=== PATIENT | male | born 1985 | race Caucasian/White ===

== ENCOUNTER 2017-04-13 16:12 | Emergency (ER) | payer OTHER ==
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
--- NOTE | 2017-04-14 11:06 | Diagnostic Imaging Report ---
Exam: CT scan of the brain without contrast History: Head injury Total DLP equals 627 CTDI equals 3. 1.4 Axial sections were obtained from the base of the skull to the vertex. There is a normal ventricular system size. No focal parenchymal lesions are seen. No evidence of any mass effect or shift of midline structures. No extra-axial masses or abnormal fluid collections. Impression: Negative examination.
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
== END 2017-04-13 18:25 | disposition home or self-care (01) ==
LOC: ER 16:12
DX: S00.81XA Abrasion of other part of head, initial encounter (principal); F17.200 Nicotine dependence, unspecified, uncomplicated; Y08.89XA Assault by other specified means, initial encounter; Y93.89 Activity, other specified; Y92.89 Other specified places as the place of occurrence of the external cause; Y99.8 Other external cause status
CPT/HCPCS: 70450-TC; 70486-TC; Z7502

== ENCOUNTER 2017-04-15 14:13 | Emergency (ER) | payer OTHER ==
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
== END 2017-04-15 14:30 | disposition still patient (30) ==
LOC: ER 14:13
DX: Z02.89 Encounter for other administrative examinations (principal); S00.81XD Abrasion of other part of head, subsequent encounter; X58.XXXD Exposure to other specified factors, subsequent encounter
CPT/HCPCS: Z7502

== ENCOUNTER 2017-06-19 11:21 | Emergency (ER) | payer OTHER ==
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
[2017-06-19] MEDS ORDERED: Triple Antibiotic 0.94 gm Pkt TP STA (12:01)
[2017-06-19] MEDS ORDERED: Bacitracin pkt 1 gm Pkt TP ONE (12:13)
[2017-06-19] MEDS ORDERED: Triple Antibiotic 0.94 gm Pkt TP ONE (12:25)
[2017-06-19 12:26] LABS: % BASOPHILS 0.2 % (0.0-2.0); % EOSINOPHILS 1.3 % (0.0-5.0); % LYMPHOCYTES 26.6 % (20.0-50.0); % MONOCYTES 7.7 % (2.0-10.0); % NEUTROPHILS 64.2 % (40.0-80.0); HEMATOCRIT 40.2 % (41.0-60); HEMOGLOBIN 13.6 gm/dL (12-16); MEAN CELL VOLUME 87.4 fl (80-99); MEAN CORPUSCULAR HEMOGLOBIN 29.5 pg (26.0-30.0); MEAN CORPUSCULAR HGB CONC 33.8 pg (28.0-36.0); MEAN PLATELET VOLUME 7.2 fl; NEUTROPHILE ABSOLUTE 4.5 Th/cmm (1.8-8.0); PLATELET COUNT 223 Th/cmm (150-400); RED CELL DISTRIBUTION WIDTH 13.3 % (11.5-20.0); WHITE BLOOD COUNT 6.9 Th/cmm (4.8-10.8)
[2017-06-19 12:37] LABS: INR 1.14 (0.5-1.4)
[2017-06-19 12:41] LABS: ALB/GLOB RATIO 1.6 (1.0-1.8); ALKALINE PHOSPHATASE 20 U/L (34-104); ANION GAP 5.4 (7.0-16.0); BILIRUBIN,TOTAL 0.6 mg/dL (0.3-1.0); CALCIUM SERUM 9.1 mg/dL (8.6-10.3); CARBON DIOXIDE 30.7 mEq/L (21.0-31.0); CHLORIDE 106 mEq/L (98-107); CREATININE - SERUM 0.9 mg/dL (0.7-1.3); GLUCOSE 97 mg/dL (70-105); POTASSIUM SERUM 4.1 mEq/L (3.5-5.1); SGOT 101 U/L (13-39); SGPT/ALT 75 U/L (7-52); SODIUM SERUM 138 mEq/L (136-145)
[2017-06-19 13:38] LABS: BUN/CREATININE RATIO 13.3
[2017-06-19 13:44] LABS: BUN - UREA NITROGEN 12 mg/dL (7-25)
--- NOTE | 2017-06-20 08:03 | Diagnostic Imaging Report ---
Head CT without intravenous contrast Indication: Trauma nasal region Comparison: Head CT on 04/13/2017 Technique: Axial images were obtained from the vertex to the skull base without IV contrast. Coronal reconstructions were made. Total DLP: 575, [id number] FINDINGS: Images of the brain obtained without contrast demonstrate no acute hemorrhage. No mass lesions identified. The ventricles and basal cisterns are patent. The campo-white matter differentiation is preserved. There is no mass effect or midline shift. No skull fractures identified. No soft tissue swelling. The paranasal sinuses are clear. IMPRESSION: No acute intracranial abnormality.
--- NOTE | 2017-06-20 08:13 | Diagnostic Imaging Report ---
CT facial bones without IV contrast HISTORY: Trauma left facial region COMPARISON: CT facial bones on 04/13/2017 Technique: Axial images of the paranasal sinuses were obtained without IV contrast. Reconstructions were made. total DLP: 231, CTDI16 Findings: There are multiple fractures of the left maxillary sinus including fractures involving the anterior wall and impacted depressed fracture involving the posterior lateral wall with 4 mm internal displacement of fracture fragments along the posterior lateral wall and surrounding pockets of gas. The fracture extends to the lateral aspect of the left maxillary sinus along the anterior aspect along of the left zygomatic arch. The left orbital floor is preserved. The left pterygoid plates are preserved. There are pockets of gas seen throughout the left union steward space region and within the left maxillary sinus. Partial opacification left maxillary sinus with high density and small air-fluid level. Mucous retention cyst versus polyps are seen within the right maxillary sinus. The globes and intraconal compartments are preserved. Age-indeterminate nondisplaced nasal fractures are noted. There is mild rightward deviation of the nasal septum. There is diffuse soft tissue swelling of the left facial region. IMPRESSION: Left-sided facial fractures including displaced fracture which extends from the anterior aspect of the left zygomatic arch to the left maxillary sinus with associated fractures of the anterior and posterior-lateral mosquera of the left maxillary sinus extending to the floor of the left maxillary sinus. Surrounding soft tissue swelling is seen. Pockets of gas in the regional superficial and deep fat planes are also noted. The left orbital floor is intact. Small air-fluid levels within the left maxillary sinus with small amount of hemorrhage also noted. Age-indeterminate possibly chronic nondisplaced nasal fractures. Sinus disease including mucous retention cysts versus polyps of the right maxillary sinus.
== END 2017-06-19 19:15 | disposition home or self-care (01) ==
LOC: ER 11:21
DX: S05.12XA Contusion of eyeball and orbital tissues, left eye, initial encounter (principal); F15.10 Other stimulant abuse, uncomplicated; Z86.19 Personal history of other infectious and parasitic diseases; X58.XXXA Exposure to other specified factors, initial encounter; Y93.89 Activity, other specified; Y92.89 Other specified places as the place of occurrence of the external cause; Y99.8 Other external cause status
CPT/HCPCS: 99285; 70450; 70486; 36415; 36416; 82948; 85025; 85610; 80320; 80053; 90715; Z7610

== ENCOUNTER 2017-07-09 10:33 | Emergency (ER) | payer OTHER ==
[2017-07-09] MEDS ORDERED: Naloxone 0.4 mg/mL 1mL Vial IM STA (10:39)
[2017-07-09] MEDS ORDERED: Naloxone 0.4 mg/mL 1mL Vial ONE (10:47)
--- NOTE | 2017-07-09 10:47 | ED Physician Chart ---
ED Chief Complaint/HPI - Patient Information Date Seen:: 07/09/17 Time Seen:: 10:40 Chief Complaint:: altered while sleeping on street History of Present Illness:: location: general quality: altered while sleeping on the street severity: mild duration: few hours context: pt with history of methadone use says he took one pill this am and was found sleeping on the street by bystanders who called 911. medics arriving on scene performed initial survey and asked pt routine screening questions. pt lay in sleeping position on street and did not answer questions. pt is easily arousable, opens eyes spontaneously but because he did not answer the questions according to medic protocol pt to be brought to ER, stable vital signs. no pain complaint on arrival. mod factors: none assoc s/s: none hx from medic and patient Allergies:: Allergies Allergy/AdvReac Type Severity Reaction Status Date / Time No Known Allergies Allergy Verified 06/28/16 03:47 Historian:: Patient, EMS Review:: Nurse's Note Reviewed, EMS run form Reviewed ED Review of Systems - Review of Systems General/Constitutional: No fever, No chills, No weight loss, No weakness, No diaphoresis, No edema, No loss of appetite Skin: No skin lesions, No rash, No bruising Head: No headache, No light-headedness Eyes: No loss of vision, No pain, No diplopia ENT: No earache, No nasal drainage, No sore throat, No tinnitus Neck: No neck pain, No swelling, No thyromegaly, No stiffness, No mass noted Cardio Vascular: No chest pain, No palpitations, No PND, No orthopnea, No edema Pulmonary: No SOB, No cough, No sputum, No wheezing GI: No nausea, No vomiting, No diarrhea, No pain, No melena, No hematochezia, No constipation, No hematemesis G/U: No dysuria, No frequency, No hematuria Musculoskeletal: No bone or joint pain, No back pain, No muscle pain Endocrine: No polyuria, No polydipsia Psychiatric: No prior psych history, No depression, No anxiety, No suicidal ideation Hematopoietic: No bruising, No lymphadenopathy Allergic/Immuno: No urticaria, No angioedema Neurological: No syncope, No focal symptoms, No weakness, No paresthesia, No headache, No seizure, No dizziness, No confusion, No vertigo ED Past Medical History - Past Medical History Past Medical History: Other (history of methadone use) Family History: None Social History: Smoker, Alcohol, Illicit Drug Use, Single Surgical History: None Psychiatricy History: None Medication: None Family Medical History - Family Member Mother History Unknown: Yes ED Physical Exam - Physical Examination General/Constitutional: Awake, Well-developed, well-nourished, Alert, No distress, GCS 15, Non-toxic appearing, Ambulatory Head: Atraumatic Eyes: Lids, conjuctiva normal, PERRL, EOMI Skin: Nl inspection, No rash, No skin lesions, No ecchymosis, Well hydrated, No lymphadenopathy ENMT: External ears, nose nl, Nasal exam nl, Lips, teeth, gums nl Neck: Nontender Respiratory: Nl effort/Exclusion, Clear to Auscultation, No Wheeze/Rhonchi/Rales Cardio Vascular: RRR, No murmur, gallop, rubs, NL S1 S2 GI: No tenderness/rebounding/guarding : No CVA tenderness Extremities: No tenderness or effusion, Full ROM, normal strength in all extremities, No edema, Normal digits & nails Neuro/Psych: Alert/oriented, Mood normal (pt lies sleeping on [facility] but arouses spontaneously when spoken to. has normal gait witnessed by physician.) Misc: Normal back, No paraspinal tenderness ED Labs/Radiology/EKG Results - Lab Results Results: medical decision making: pt with history of opiate and benzo use. has current reported script for alprazolam. no complaint to medics but brought in due to not answering screening questions. medics report stable vitals. pt is observed to awaken spontaneously in ER during transfer to [facility]. physician discusses with nurse use of narcan, pt overhears physician talk about administering narcan and says no, I dont want to wake up right now. narcan is administered. pt with increased sensorium. plan to observe in ER and discharge to home when pt is awake, alert, normal gait. pt with no complaint of pain or other during ER stay. when patient wakes up after narcan administration he notes that he is wearing hospital band from prior visit. he says 'Adela been here like 30 times, I want to collect the bands'. pt is awakened by narcan and when awake, alert reports no medical complaint. says he feels fine. ED Septic Shock - . Is Septic Shock (SBP<90, OR Lactate>4 mmol\L) present?: No ED Reassessment (Disposition) - Reassessment Reassessment:: pt in stable condition while in ER Reassessment Condition:: Improved - Diagnosis Diagnosis:: opiate use and dependance - improved - Aftercare/Follow up Instructions Aftercare/Follow-Up Instructions:: Counseled pt regarding lab results/diagnosis & need follow up Notes:: go to clinic for recheck tomorrow. please discontinue use of pain pills, methadone, you may likely overdose and if you dont make some beneficial changes. - Patient Disposition Discharge/Transfer:: Home Condition at Disposition:: Stable, Improved
== END 2017-07-09 12:20 | disposition home or self-care (01) ==
LOC: ER 10:33
DX: F11.20 Opioid dependence, uncomplicated (principal)
CPT/HCPCS: X6614; Z7502